=== PATIENT | female | born 1995 | race African-American/Black ===

== ENCOUNTER 2024-11-23 06:47 | Emergency (ER) | payer OTHER ==
[2024-11-23] MEDS ORDERED: HYDROcodone/Acetaminophen 5/325 mg Tablet ONE (07:18)
== END 2024-11-23 07:47 | disposition home or self-care (01) ==
LOC: ERS 06:47
DX: M25.562 Pain in left knee (principal); W01.198A Fall on same level from slipping, tripping and stumbling with subsequent striking against other object, initial encounter; Y99.0 Civilian activity done for income or pay
CPT/HCPCS: 99283